=== PATIENT | female | born 2000 | race African-American/Black ===

== ENCOUNTER 2020-09-09 07:48 | Emergency (ER) | payer OTHER ==
[~2020-09-09] VITALS: Ht 167.6 cm; Wt 65.5 kg
[2020-09-09] MEDS ORDERED: PRENTAB53 PO (07:54)
--- NOTE | 2020-09-09 09:00 | REP ---
INDICATION: 7 weeks, "spitting up blood" COMPARISON: None. TECHNIQUE: Transabdominal 1st trimester obstetrical ultrasound with color Doppler evaluation. FINDINGS: Single live early intrauterine is appreciated. Gestational sac with yolk sac and pole identified. [place]-rump length of 15 mm corresponds to 7 weeks 6 days gestational age with estimated date of delivery 04/22/2021. heart rate equals 163 beats per minute. No gross abnormalities are identified. IMPRESSION: Single live early intrauterine at 7 weeks 6 days gestational age. Complete anatomical assessment should be performed and 19-20 weeks. <Electronically signed by Lars Shore > 09/09/20 0820
[2020-09-09 09:01] LABS: BASO % 0.6 % (0.0-1.0); EOS # 0.1 10^3/uL (0.0-0.5); EOS % 1.5 % (0.0-3.0); HEMATOCRIT 35.5 % (36.0-47.0); HEMOGLOBIN 10.9 g/dl (12.0-15.5); LYMPH # 2.1 10^3/uL (1.5-5.0); LYMPH % 43.1 % (24.0-44.0); MEAN CORPUSCULAR HEMOGLOBIN 19.4 pg (27.0-33.0); MEAN CORPUSCULAR HGB CONC 30.7 g/dl (32.0-36.5); MEAN CORPUSCULAR VOLUME 63.2 fl (80.0-96.0); MONO # 0.4 10^3/uL (0.0-0.8); MONO % 8.2 % (2.0-8.0); NEUTROPHILS # 2.2 10^3/uL (1.5-8.5); NEUTROPHILS % 46.4 % (36.0-66.0); PLATELET COUNT, AUTOMATED 211 10^3/uL (150-450); RED BLOOD COUNT 5.62 10^6/uL (4.00-5.40); WHITE BLOOD COUNT 4.8 10^3/uL (4.0-10.0)
[2020-09-09 09:38] LABS: BLOOD UREA NITROGEN 8 MG/DL (7-18); CALCIUM LEVEL 9.1 MG/DL (8.5-10.1); CARBON DIOXIDE LEVEL 26 MEQ/L (21-32); CHLORIDE LEVEL 106 MEQ/L (98-107); CREATININE FOR GFR 0.55 MG/DL (0.55-1.30); GLUCOSE, FASTING 81 MG/DL (70-100); HCG, SERUM QUANTITATIVE 114743 MIU/ML; POTASSIUM SERUM 3.8 MEQ/L (3.5-5.1); SODIUM LEVEL 137 MEQ/L (136-145)
[2020-09-09 11:12] VITALS: BP 113/59
--- NOTE | 2020-09-09 19:54 | ECGEPIP ---
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
== END 2020-09-09 11:15 | disposition home or self-care (01) ==
LOC: M ED 07:48
DX: O99.511 Diseases of the respiratory system complicating pregnancy, first trimester (principal); R04.2 Hemoptysis; Z3A.01 Less than 8 weeks gestation of pregnancy; Z86.16 Personal history of COVID-19; Z79.899 Other long term (current) drug therapy

== ENCOUNTER 2020-11-26 12:17 | Emergency (ER) | payer OTHER ==
[~2020-11-26] VITALS: Ht 165.1 cm; Wt 66.2 kg
[2020-11-26 12:17] VITALS: BP 129/69
[~2020-11-26 12:17] MED LIST: PRENTAB53 PO
[2020-11-26 13:35] LABS: HEMATOCRIT 31.2 % (36.0-47.0); HEMOGLOBIN 9.7 g/dl (12.0-15.5); MEAN CORPUSCULAR HEMOGLOBIN 20.4 pg (27.0-33.0); MEAN CORPUSCULAR HGB CONC 31.1 g/dl (32.0-36.5); MEAN CORPUSCULAR VOLUME 65.5 fl (80.0-96.0); PLATELET COUNT, AUTOMATED 199 10^3/uL (150-450); RED BLOOD COUNT 4.76 10^6/uL (4.00-5.40); WHITE BLOOD COUNT 5.6 10^3/uL (4.0-10.0)
[2020-11-26 13:51] LABS: BLOOD UREA NITROGEN 9 MG/DL (7-18); CALCIUM LEVEL 9.4 MG/DL (8.5-10.1); CARBON DIOXIDE LEVEL 28 MEQ/L (21-32); CHLORIDE LEVEL 105 MEQ/L (98-107); CK-MB VALUE MASS < 1.0 NG/ML (<3.6); CPK CREATINE PHOSPHOKINASE 54 U/L (26-192); CREATININE FOR GFR 0.49 MG/DL (0.55-1.30); GLUCOSE, FASTING 67 MG/DL (70-100); MB/CK RELATIVE INDEX 1.85 (< OR =4); POTASSIUM SERUM 4.3 MEQ/L (3.5-5.1); SODIUM LEVEL 139 MEQ/L (136-145); TROPONIN I < 0.02 NG/ML (< 0.10)
--- NOTE | 2020-11-27 07:51 | ECGEPIP ---
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
== END 2020-11-26 15:00 | disposition left against medical advice (07) ==
LOC: M ED 12:17
DX: Z53.21 Procedure and treatment not carried out due to patient leaving prior to being seen by health care provider (principal)

== ENCOUNTER 2020-12-03 11:42 | Emergency (ER) | payer OTHER ==
[~2020-12-03] VITALS: Ht 165.1 cm; Wt 97.7 kg
[2020-12-03] MEDS ORDERED: NS 1,000 ML IV ONE (13:35)
[2020-12-03] MEDS ORDERED: CEPH500C PO (14:00)
[2020-12-03] MEDS ORDERED: PYRI1TAB5 PO (14:00)
[2020-12-03 14:10] VITALS: BP 120/66
== END 2020-12-03 14:15 | disposition home or self-care (01) ==
LOC: M ED 11:42
DX: O23.41 Unspecified infection of urinary tract in pregnancy, first trimester (principal); Z3A.19 19 weeks gestation of pregnancy; Z79.899 Other long term (current) drug therapy

== ENCOUNTER 2020-12-18 20:52 | Outpatient (CLI) | payer OTHER ==
[~2020-12-18] VITALS: Ht 165.1 cm; Wt 71.6 kg
[~2020-12-18 20:52] MED LIST changes: +CEPH500C PO; +PYRI1TAB5 PO
[2020-12-18 21:19] VITALS: BP 130/84
[2020-12-18] MEDS ORDERED: HOME MED LIST COMPLETE! XX SCH (21:20)
--- NOTE | 2020-12-19 09:01 | HPE ---
HISTORY AND PHYSICAL DATE OF ADMISSION: 12/18/2020 This lady is a 20-year-old, 2, para 0, last menstrual period (LMP) 07/18/2020, estimated date of confinement (EDC) 04/24/2021 by early ultrasound 9 weeks, 3 days of 04/29/2021. She came up from the emergency department (ED) because she has a left earache, she has diarrhea and abdominal cramps, and decreased movement at 21 weeks of gestation. On examination, in no acute distress. Her blood pressure is 130/84, respirations 18, pulse at 94, and temperature is 98.0. On the monitor there seems to be a reactive strip. We did an ultrasound which indicated a baby in a transverse lie, back down, we could see four limb motion, jaws were moving, head was flexed side to side, cardiac activity was noted, amniotic fluid index (HAMMAD) was subjectively normal. Despite that, the patient could not feel this movement. Her lab work indicated her urine was 1.029, pH of 5, cloudy, ketones were high, leukocyte esterase was +1, was negative for bacteria. Patient had been recently treated for a urinary tract infection (UTI) in the past, however she does not know what she was taking. The rest of the examination is unremarkable. Normocephalic, atraumatic. Neck full range of motion. Pupils equal and reactive to light. Distal pulses are symmetric. No evidence of deep venous thrombosis (DVT), pulmonary embolus (PE), or superficial phlebitis. Chest is clear bilaterally to the bases. No wheezes or rhonchi. No costovertebral angle (CVA) tenderness. Abdomen is soft, four quadrant bowel sounds are noted, appropriate symphysis fundus height. She did complain of some clear discharge but this has been ongoing for a while, especially after intercourse. No vaginal bleeding was noted. Her cramps and diarrhea were not evidenced here, however she did say at home she did have that. In summary, we have a 21-weeker with normal activity, no evidence of ruptured membranes, no bleeding. She was discharged to the ED to evaluate and to treat her left ear infection. She has an appointment on 01/05/2021 with [facility] ([facility]). Her anatomy scan was normal. All questions are answered, 30 minute discussion.
== END 2020-12-18 22:02 | disposition home or self-care (01) ==
LOC: M LDO 20:52
PROVIDERS: ATTEND Obstetrics & Gynecology
DX: O26.892 Other specified pregnancy related conditions, second trimester (principal); Z3A.21 21 weeks gestation of pregnancy; R19.7 Diarrhea, unspecified; R25.2 Cramp and spasm; O36.8120 Decreased fetal movements, second trimester, not applicable or unspecified; O99.892 Other specified diseases and conditions complicating childbirth; H66.92 Otitis media, unspecified, left ear
CPT/HCPCS: 81001; 87086; G0378; G0463

== ENCOUNTER 2020-12-29 13:23 | Outpatient (CLI) | payer OTHER ==
[~2020-12-29] VITALS: Ht 165.1 cm; Wt 74.7 kg
[2020-12-29 13:42] VITALS: BP 131/76
[2020-12-29] MEDS ORDERED: FERR325T3 PO (13:50)
[2020-12-29] MEDS ORDERED: CIPR0.2S OTIC (13:50)
[2020-12-29] MEDS ORDERED: VITA500C24 PO (13:50)
[2020-12-29] MEDS ORDERED: HOME MED LIST COMPLETE! XX SCH (13:55)
--- NOTE | 2020-12-29 15:26 | IPNPDOC ---
Text Note Date of Service The patient was seen on 12/29/20. NOTE 12/29/20 20 y.0 LMP 07/18/2020 EDC 04/24/2021 BY US 9 WEEKS 3 DAYS. COMPLAINTS OF LOW BACK PAIN ABDOMINAL PAIN AND VAGINAL DISCHARGE.NO VAGINAL BLEEDING OR LOSS OF FLUID. PLAN OF CARE EARACHE RESOLVED UTI RESOLVED CRAMPS AND DIRREAH EXAMINATION NO ACUTE DISTRESS, CATEGORY 1 STRIP. SF HEIGHT APPROPRIATE STERILE VAGINAL EXAMINATION PHYSIOLOGIC DISCHARGE CERVIX POSTERIOR CLOSED THICK SWAB FOR GBS THE SLIDE EXAMINATION NEGATIVE FOR YEAST BV AND NO FERNING PRECAUTIONS GIVEN KEEP APPOINTMENT FT [facility] OB THEN AT APPOINTMENT ASK FOR MATERNITY SUPPORT. PATIENT DISCHARGED UNDELIVERED VS,Fishbone, I+O VS, Fishbone, I+O Vital Signs Date Time Temp Pulse Resp B/P (MAP) Pulse Ox O2 Delivery O2 Flow Rate FiO2 12/29/20 13:42 98.4 99 18 131/76 (94) Mateo Nunes MD Dec 29, 2020 15:26
== END 2020-12-29 14:45 | disposition home or self-care (01) ==
LOC: M LDO 13:23
PROVIDERS: ATTEND Registered Nurse Maternal Newborn
DX: O26.892 Other specified pregnancy related conditions, second trimester (principal); R10.2 Pelvic and perineal pain; Z3A.22 22 weeks gestation of pregnancy; N89.8 Other specified noninflammatory disorders of vagina
CPT/HCPCS: 59025; G0378; G0463

== ENCOUNTER → 2021-01-14 | Outpatient (CLI) | payer OTHER ==
[~2021-01-14] MED LIST changes: +CIPR0.2S OTIC; +FERR325T3 PO; +VITA500C24 PO
--- NOTE | 2021-01-14 16:21 | REP ---
INDICATION: PREG, EXTREME RT LEG SWELLING, WARM TO TOUGH COMPARISON: None. TECHNIQUE: Real time compression and duplex Doppler interrogation of the right lower extremity deep venous system is performed, including the left common femoral vein.Compression of the right peroneal and posterior tibial veins is performed. FINDINGS: The right common femoral, superficial femoral and popliteal veins are fully compressible with transducer pressure and demonstrate normal spontaneous and phasic flow, without evidence of deep venous thrombosis.The left common femoral vein demonstrates no thrombus.The visualized right peroneal and posterior tibial veins demonstrate no thrombus. IMPRESSION: No evidence of deep venous thrombosis of the right lower extremity femoral popliteal venous system.The visualized right peroneal and posterior tibial veins demonstrate no thrombus. <Electronically signed by Sam Riggs > 01/14/21 [id number]
== END ==
LOC: M RAD 15:39
PROVIDERS: ATTEND Obstetrics & Gynecology
DX: M79.89 Other specified soft tissue disorders (principal)

== ENCOUNTER 2021-01-31 16:47 | Outpatient (CLI) | payer OTHER ==
[~2021-01-31] VITALS: Ht 165.1 cm; Wt 76.8 kg
[2021-01-31] MEDS ORDERED: HOME MED LIST COMPLETE! XX SCH (17:10)
[2021-01-31 17:12] VITALS: BP 112/56
[2021-01-31 18:06] VITALS: BP 119/65
[2021-01-31 18:39] VITALS: BP 108/56
--- NOTE | 2021-01-31 20:54 | IPNPDOC ---
Text Note Date of Service The patient was seen on 01/31/21. NOTE 01/31/21 20 Y.O A1 LMP 07/18/20 EDC BY EARLY 04/24/2021 AT 28 WEEKS DECREASE MOVEMENT. RISK FACTORS ANEMIA RH NEGATIVE EXAMINATION NO ACUTE DISTRESS SF HEIGHT 28 WEEKS BOWEL SOUNDS NORMAL CATEGORY 1 STRIP. NO VAGINAL LOSS NO BLEEDING NO CONTRACTIONS ACCELERATIONS NOTED REVIEWED PRECAUTIONS REVIEWED FK PROM LABOR BLEEDING WHEN TO CALL PROVIDER, EXPRESSED UNDERSTANDING DISCHARGED UNDELIVERED VS,Fishbone, I+O VS, [place], I+O Vital Signs Date Time Temp Pulse Resp B/P (MAP) Pulse Ox O2 Delivery O2 Flow Rate FiO2 01/31/21 18:42 79 98 Room Air 01/31/21 18:39 98.8 16 108/56 (73) Mateo Nunes MD Jan 31, 2021 20:53
== END 2021-01-31 18:40 | disposition home or self-care (01) ==
LOC: M LDO 16:47
PROVIDERS: ATTEND Obstetrics & Gynecology
DX: O36.8130 Decreased fetal movements, third trimester, not applicable or unspecified (principal); Z3A.28 28 weeks gestation of pregnancy; O99.013 Anemia complicating pregnancy, third trimester
CPT/HCPCS: 59025; G0378; G0463

== ENCOUNTER → 2021-02-18 | Outpatient (CLI) | payer OTHER ==
--- NOTE | 2021-02-18 14:28 | REP ---
INDICATION: RT LEG EDEMA - 30 WEEKS- COMPARISON: 01/14/2021. TECHNIQUE: Real time compression and duplex Doppler interrogation of the right lower extremity deep venous system is performed, including the left common femoral vein.Compression of the right peroneal and posterior tibial veins is performed. FINDINGS: The right common femoral, superficial femoral and popliteal veins are fully compressible with transducer pressure and demonstrate normal spontaneous and phasic flow, without evidence of deep venous thrombosis.The left common femoral vein demonstrates no thrombus.The visualized right peroneal and posterior tibial veins demonstrate no thrombus. IMPRESSION: No evidence of deep venous thrombosis of the right lower extremity femoral popliteal venous system.The visualized right peroneal and posterior tibial veins demonstrate no thrombus. <Electronically signed by Sam Riggs > 02/18/21 [id number]
== END ==
LOC: M RAD 13:36
PROVIDERS: ATTEND Obstetrics & Gynecology
DX: O12.03 Gestational edema, third trimester (principal); Z3A.30 30 weeks gestation of pregnancy

== ENCOUNTER 2021-02-24 09:18 | Outpatient (CLI) | payer OTHER ==
[~2021-02-24] VITALS: Ht 165.1 cm; Wt 79.6 kg
[2021-02-24 09:44] VITALS: BP 110/65
--- NOTE | 2021-02-24 11:04 | IPNPDOC ---
Text Note Date of Service The patient was seen on 02/24/21. NOTE S: 21yo @ 31+0, august [id number], presents to triage with c/o decreased movement. Denies bleeding, LOF, or contractions. O: VSS RNST, fhr 130, mod variability, 10x10 accel, neg decel, no contractions noted TAUS for SIUP in cephalic presentation anterior placenta noted +FM visualized HAMMAD: 16.7cm SDP: 6.14cm A: [id number] decreased movement suspected condition not found P: PTL precautions given [facility] instructions reviewed Pt expressed understanding of instructions and reasons to return for care. VS,Fishbone, I+O VS, Fishbone, I+O Vital Signs Date Time Temp Pulse Resp B/P (MAP) Pulse Ox O2 Delivery O2 Flow Rate FiO2 02/24/21 09:44 98.2 102 16 110/65 (80) FADIA JIMÉNEZ CNM Feb 24, 2021 11:04
== END 2021-02-24 10:55 | disposition home or self-care (01) ==
LOC: M LDO 09:18
PROVIDERS: ATTEND Registered Nurse
DX: O36.8130 Decreased fetal movements, third trimester, not applicable or unspecified (principal); Z3A.31 31 weeks gestation of pregnancy
CPT/HCPCS: 59025; 76815; G0378; G0463

== ENCOUNTER 2021-03-05 09:48 | Outpatient (CLI) | payer OTHER ==
[~2021-03-05] VITALS: Ht 165.1 cm; Wt 82.5 kg
[2021-03-05 10:10] VITALS: BP 118/70
[2021-03-05] MEDS ORDERED: IRON15CH PO (10:15)
[2021-03-05] MEDS ORDERED: VITA500C24 PO (10:15)
[2021-03-05] MEDS ORDERED: HOME MED LIST COMPLETE! XX SCH (10:20)
[2021-03-05 10:53] LABS: HEMATOCRIT 31.4 % (36.0-47.0); HEMOGLOBIN 9.8 g/dl (12.0-15.5); MEAN CORPUSCULAR HEMOGLOBIN 21.2 pg (27.0-33.0); MEAN CORPUSCULAR HGB CONC 31.2 g/dl (32.0-36.5); MEAN CORPUSCULAR VOLUME 67.8 fl (80.0-96.0); PLATELET COUNT, AUTOMATED 183 10^3/uL (150-450); RED BLOOD COUNT 4.63 10^6/uL (4.00-5.40); WHITE BLOOD COUNT 6.6 10^3/uL (4.0-10.0)
[2021-03-05 11:05] LABS: INR 0.97; PROTHROMBIN TIME 13.3 SECONDS (12.7-14.5)
[2021-03-05 11:06] LABS: PARTIAL THROMBOPLASTIN TIME 27.7 SECONDS (25.9-37.0)
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
== END 2021-03-05 11:38 | disposition home or self-care (01) ==
LOC: M LDO 09:48
PROVIDERS: ATTEND Obstetrics & Gynecology
DX: O26.893 Other specified pregnancy related conditions, third trimester (principal); Y92.9 Unspecified place or not applicable; Y93.9 Activity, unspecified; Y99.9 Unspecified external cause status; Z3A.32 32 weeks gestation of pregnancy
CPT/HCPCS: 36415; 59025; 76815; 85027; 85384; 85460; 85610; 85730; G0378; G0463

== ENCOUNTER → 2021-04-12 | Outpatient (CLI) | payer OTHER ==
[~2021-04-12] MED LIST changes: +ACET-683 PO; +IBUP80TA PO; +IRON15CH PO; +OXYC-517 PO
== END ==
LOC: M RAD 14:42
PROVIDERS: ATTEND Obstetrics & Gynecology
DX: Z34.83 Encounter for supervision of other normal pregnancy, third trimester (principal); Z3A.38 38 weeks gestation of pregnancy

== ENCOUNTER 2021-04-17 23:25 | Inpatient (IN) | payer OTHER ==
[~2021-04-17] VITALS: Ht 165.1 cm; Wt 90.5 kg
[~2021-04-17 23:25] MED LIST changes: -ACET-683 PO; -IBUP80TA PO; -OXYC-517 PO
[2021-04-17 23:44] VITALS: BP 141/91
[2021-04-18] VITALS (21 sets, daily range): BP systolic 121–169; BP diastolic 67–93
[2021-04-18] MEDS ORDERED: LR 1,000 ML IV SCH ×2 (00:50→18:35)
[2021-04-18] MEDS ORDERED: OXYTOCIN DRIP 30 UNITS in IV 1 EA IV PRN ×4 (00:50)
--- NOTE | 2021-04-18 01:08 | HPEPDOC ---
Obstetrical History & Physical General Date of Admission History of Present Illness Ernestina Jones is a 21yo at 39+1 presenting for rupture of membranes at about 2200 [id number], clear fluid. Denies vaginal bleeding. Feels irregular contractions. Endorses positive movement. Denies any other complaints. 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 Past Medical History Medical History Denies Surgical History: Denies/None Family History Significant Family History: No pertinent family hx Social History Marital Status: Family situation: Spouse/partner home Psychosocial History: No pertinent psych hx * Smoker: non-smoker Alcohol: Denies Drugs: denies Abuse Violence Screening Have you been hit/kicked/slapp: No Have you been sexually assault: No Imunizations Tdap status: declined Influenza Status: needs Allergies Coded Allergies: No Known Allergies (Unverified , 04/17/21) Medications Scheduled Vit,Calc76/Iron/Folic (Prenatabs Rx Tablet) 1 Each Tablet, 1 TAB PO DAILY Physical Examination Physical Examination GENERAL: Alert and oriented times three. BREAST: . ABDOMEN: Gravid and non-tender to touch. EFW 3400g by palpation. FETUS: Is vertex (VTX) by ultrasound HEART RATE: Regular rate LUNGS: nonlabored breathing EXTREMITIES: No edema. Pertinent Laboratoy Data Blood Type: B- RBC Antibody Screen: Negative HIV: Negative Hepatitis B: Negative Rapid Plasma Reagin: Nonreactive Rubella: Immune Varicella: Immune Chlamydia/Gonorrhea: Negative Group B Streptococcus: Negative Quad Screen Test: Negative Cystic Fibrosis: Negative Glucose Tolerance Test: 84 Anatomy Ultrasound Ultrasound Date: Dec 09, 2020 Placenta Location: Anterior Normal Anatomy: Yes Placenta Previa: No Steroid Therapy Steroid Therapy: No Vaginal Examination Dilation: None Effacement: 30% Station: -3 Cervical Consistency: Firm Cervical Position: Posterior Presentation: Cephalic presentation Assessment Heart Rate (FHR): 130 Variability: Moderate Accelerations: Positive Decelerations: None Tocometer Contractions: Yes Frequency: every 3-7 min. Multi-drug resistant Organism: No history of MDRO Assessment/Plan Assessment Ernestina Jones is a term admitted for PROM. GBS negative, cephalic presentation, efw 3400g. Rh negative. Category I tracing. Plan Admit and orient. Manager Council and consent. Diet: regular. Group B Streptococcus (GBS) [negative]. Labs and intravenous (IV) per unit protocol. Counseled on Pitocin and induction of labor (IOL). Lactated Ringers (LR): at 125 mL/hr. Anticipate normal spontaneous delivery C-S as appropriate. We discussed immediate labor induction vs. 12 hours of observation for natural labor to occur after ROM; discussed risk of infection; at this time she desires expectant management. Labor and Delivery Counseling L&D consent We will deliver your baby through the vagina with possible assistance of forceps or vacuum device if needed for maternal or indications. Forceps and vacuum are devices that can assist with vaginal delivery when normal pushing efforts cannot achieve delivery on their own or when delivery is needed in an emergency for baby's well-being. Medications may be required to induce or augment (help) your labor in order to achieve a vaginal delivery. An episiotomy may be required to help your baby to delivery vaginally. You may also require repair of any lacerations or tears of your vagina or vulva that are caused by delivery. In some cases, emergencies can occur that require an emergency section delivery so quickly that there may not be enough time to stop and complete consent forms for section. Understand that if this occurs, your providers will discuss the need for a section with you before they proceed with surgery. section is the delivery of your baby through an incision in your abdomen. In some situations, section may be safer to mom and baby than continuing labor and is only performed when clinically indicated. Risks of vaginal delivery include but are not limited to: Bleeding, infection, injury to the vagina, pelvic structures, injury to baby, damage to the uterus, reactions to anesthesia, uterine rupture, risk of hysterectomy for life threatening bleeding, or . Medications used to induce or augment labor may increase your risk for infection, uterine tachysystole, uterine rupture, heart rate abnormalities, need for emergency delivery or possible hysterectomy, and hemorrhage. Additional risks for use of forceps and vacuum include: increased risk of perineal and vaginal lacerations, risk of urinary or bowel incontinence, increased risk of injury to baby with bruising, scratches, hematomas on the head, or intracranial bleeding. Discussed risk of shoulder dystocia, procedures to relieve dystocia including intentional bone fractures of fetus as last resort. RICCI GALLO DO Apr 18, 2021 01:08
[2021-04-18] MEDS ORDERED: HOME MED LIST COMPLETE! XX SCH (01:10)
[2021-04-18 01:20] LABS: HEMATOCRIT 34.2 % (36.0-47.0); HEMOGLOBIN 10.7 g/dl (12.0-15.5); MEAN CORPUSCULAR HGB CONC 31.3 g/dl (32.0-36.5); MEAN CORPUSCULAR VOLUME 67.1 fl (80.0-96.0); PLATELET COUNT, AUTOMATED 192 10^3/uL (150-450); WHITE BLOOD COUNT 6.4 10^3/uL (4.0-10.0)
[2021-04-18 01:42] LABS: ALT/SGPT 15 U/L (12-78); BILIRUBIN,TOTAL 0.2 MG/DL (0.2-1.0); CREATININE FOR GFR 0.48 MG/DL (0.55-1.30); GLOMERULAR FILTRATION RATE > 60.0 (>60); LDH LACTATE DEHYDROGENASE 135 U/L (84-246); URIC ACID 3.5 MG/DL (2.6-6.0)
[2021-04-18 09:06] LABS: APPEARANCE, URINE HAZY (CLEAR); BACTERIA, URINE AUTO 1+ (NEGATIVE); BILIRUBIN, URINE AUTO NEGATIVE (NEGATIVE); BLOOD, URINE BLOOD 2+ (NEGATIVE); COLOR, URINE YELLOW (YELLOW); GLUCOSE, URINE (UA) AUTO NEGATIVE (NEGATIVE); KETONE, URINE AUTO NEGATIVE (NEGATIVE); LEUKOCYTE ESTERASE, URINE AUTO TRACE (NEGATIVE); MUCUS, URINE SMALL (NEGATIVE); NITRITE, URINE AUTO NEGATIVE (NEGATIVE); PROTEIN, URINE AUTO 1+ mg/dL (NEGATIVE); RBC, URINE AUTO 144 /HPF (0-3); SPECIFIC GRAVITY URINE AUTO 1.023 (1.002-1.035); SQUAMOUS EPITHELIAL CELL UR AU 9 /HPF (0-6); WBC, URINE AUTO 10 /HPF (0-3)
--- NOTE | 2021-04-18 09:23 | IPNPDOC ---
Obstetrical Progress Note Date of Service Apr 18, 2021 Subjective Ernestina Jones is feeling her contrations every few minutes. Declines pain management at this time. She has had mild range pressures with nonsustained severe ranges (160s systolic). She denies headaches, vision changes, shortness of breath or right upper quadrant pain. Objective Vital Signs Date Time Temp Pulse Resp B/P (MAP) Pulse Ox O2 Delivery O2 Flow Rate FiO2 04/18/21 06:29 98.6 85 18 134/74 (94) Room Air 04/17/21 23:44 99 Assessment Heart Rate (FHR): 135 Variability: Moderate Accelerations: Positive Decelerations: None Heart Rate Tracing: Category I Tocometer Contractions: Yes Frequency: every 3-7 min. Sterile Vaginal Examination Dilation: 1cm Effacement (%): 30% Station: -3 Cervical Consistency: Soft Cervical Position: Posterior Postion/Presentation: Cephalic presentation Assessment and Plan Age: 21 : 2 Term: 0 Pre-term: 0 Abortions: 1 Livin Weeks & Days 39+1 Status: Reassuring Group B Streptococcus: Negative Anticipate: Vaginal Delivery Additional Comments She now has a diagnosis of gestational hypertension, tox labs have been normal. Urine protein pending. At this time she had a little change to 1cm, I recommended induction of labor with pitocin or cytotec. Ath this time her contractions are at most 2 per 10 minutes, safe for cytotec. She agrees with the plan, all questions answered. Discussed need for IV antihypertensives and magnesium therapy if she has sustained severe range pressures. -initiate cytotec 25mcg PO -reevaluate labor in 4 hours -routine intrapartum care RICCI GALLO DO Apr 18, 2021 09:15
[2021-04-18 09:27] LABS: TOTAL PROTEIN,RANDOM URINE 61.8 MG/DL (0.0-12.0)
[2021-04-18] MEDS ORDERED: miSOPROStol 25MCG 1/4 TABLET PO ONE (10:00)
--- NOTE | 2021-04-18 10:32 | IPNPDOC ---
Text Note Date of Service The patient was seen on 04/18/21. NOTE Ernestina requested to talk to me so I entered the room. She expressed concern about her blood pressure which have been mild range with nonsustained severe range pressures; last blood pressure 133/90. She was asking about when she would need a . I stated that usually delivery is reserved for maternal or issues; currently the fetus is tolerating labor well. Her blood pressures at this time do not warrant delivery; perhaps if she developed severe range pressures that were not responsive to medications, or other severe features of preeclampsia then a quicker delivery may be considered. I explained that while mild range pressures may be disconcerting for her to see, it is expected with a diagnosis of gestational hypertension and that the culprit is the placenta. After delivery of the baby the placenta will come out and she should see improvement in her blood pressures after that. She also thought that her induction was taking a long time. I expalined that we had only just started her induction with cytotec about an hour ago; early cervical ripening can take 12 or more hours on occasion. All in all I attempted to reassure her that at this time she has a normal labor course. She indicated understanding and all questions were answered. Pankaj Amaro DO VS,Elizabeth, I+O VS, Elizabeth, I+O Laboratory Tests 04/18/21 01:07 Vital Signs Date Time Temp Pulse Resp B/P (MAP) Pulse Ox O2 Delivery O2 Flow Rate FiO2 04/18/21 06:29 98.6 85 18 134/74 (94) Room Air 04/17/21 23:44 99 PANKAJ AMARO DO Apr 18, 2021 10:32
--- NOTE | 2021-04-18 13:23 | IPNPDOC ---
Text Note Date of Service The patient was seen on 04/18/21. NOTE I was called to the room by nursing as I was told that Ernestina had some quest ions. When I entered the room her blood pressure was 130s/90s. The tracing was category I. Ernestina called her mother who desired clarification on her daughter's treatment plan. I explained that her diagnosis at this time is gestational hypertension based on mild range blood pressures. The treatment for gestational hypertension is delivery; however delivery can be vaginal and an induction of labor is reasonable. Indications for delivery would be heart rate tracing abnormalities or maternal indications would be uncontrolled hypertension or other symptoms of severe preeclampsia. Her mother was concerned that Ernestina's condition may deteriorate. I stated that at this time Ernestina is in good condition and the baby is tolerating labor well; vaginal delivery is a reasonable option and while I do not have a crystal ball I completely expect to have a safe vaginal delivery. I stated that a can always be performed for maternal request and if that is the case with Ernestina I would be happy to do so however the indication would be maternal request. I let them both know that at this time she is having a normal labor course and I do not have a medical reason to recommend delivery. This conversation was about 30 minutes in length and I answered numerous questions regarding her care. I reviewed the r/b/a to delivery, risks including but not limited to infection, bleeding, damage to nearby organs, damage to baby, hysterectomy, . I then left the room and she discussed her options with her family. SHe then informed me of her desire for primary delivery on maternal request. Pankaj Amaro DO VS,Elizabeth, I+O VS, Elizabeth, I+O Laboratory Tests 04/18/21 01:07 Vital Signs Date Time Temp Pulse Resp B/P (MAP) Pulse Ox O2 Delivery O2 Flow Rate FiO2 04/18/21 11:43 97.8 04/18/21 11:05 86 16 157/86 (109) 04/18/21 10:04 Room Air 04/17/21 23:44 99 PANKAJ AMARO DO Apr 18, 2021 13:23
[2021-04-18] MEDS ORDERED: OXYTOCIN 30 UNITS IN 0.9% NaCl 500ML IV BAG (J2590) As Ordered ONE ×2 (16:36→18:39)
[2021-04-18] MEDS ORDERED: MORPHINE PRES-FREE INJ 10 MG/10 ML VIAL (J2274) As Ordered ONE (16:36)
[2021-04-18] MEDS ORDERED: AZITHROMYCIN INJ 500 MG, VIAL MATE ADAPTER 1 EACH in NS 250 ML IV ONE (17:00)
[2021-04-18] MEDS ORDERED: ceFAZolin SOD 2 GM in IV 1 EA IV ONE (17:00)
[2021-04-18] MEDS ORDERED: BICITRA 30ML SOLN UDC PO ONE (17:00)
[2021-04-18] MEDS ORDERED: LIDOCAINE PRES-FREE 2% 10ML AMP As Ordered ONE (17:03)
[2021-04-18] MEDS ORDERED: diphenhydrAMINE 50MG/ML VIAL (J1200) IV PRN (17:05)
[2021-04-18] MEDS ORDERED: NALBUPHINE HCL 10 MG/ML AMP (J2300) IV PRN (17:05)
[2021-04-18] MEDS ORDERED: NALOXONE INJ 0.4MG/1ML VIAL (J2310 PER 1MG) IV PRN ×2 (17:05)
[2021-04-18] MEDS ORDERED: METOCLOPRAMIDE INJ 10MG/2ML VIAL (J2765 PER 1) IV PRN (17:05)
[2021-04-18] MEDS ORDERED: ONDANSETRON 4MG/2ML VIAL IV PRN ×3 (17:05→18:45)
[2021-04-18] MEDS ORDERED: PHENYLephrine 500MCG 5ML (100MCG/ML) SYRINGE As Ordered ONE (17:08)
[2021-04-18] MEDS ORDERED: ePHEDrine SULFATE 25 MG/5 ML(5MG/ML) SYRINGE As Ordered ONE (17:08)
[2021-04-18 17:45] LABS: CORD GAS HCO3 A 22.2 MEQ/L; CORD GAS O2 SAT A 62.2 %; CORD GAS PCO2 A 54.1 mmHg; CORD GAS PH A 7.231 UNITS; CORD GAS PO2 A 29.4 mmHg; CORD GAS SBC A 18.8 MEQ/L; CORD GAS TCO2 A 23.9 MEQ/L
[2021-04-18 17:48] LABS: CORD GAS ABE V -4.2; CORD GAS O2 SAT V 64.2 %; CORD GAS PCO2 V 43.9 mmHg; CORD GAS PH V 7.317 UNITS; CORD GAS SBC V 20.2 MEQ/L; CORD GAS TCO2 V 23.3 MEQ/L
[2021-04-18] MEDS ORDERED: RHOGAM 300 MCG (1500 IU) INJ (J2790) IM SCH (18:35)
[2021-04-18] MEDS ORDERED: PROMETHAZINE 25 MG TAB PO PRN (18:35)
[2021-04-18] MEDS ORDERED: oxyCODONE 5MG TAB PO PRN ×3 (18:35→18:45)
[2021-04-18] MEDS ORDERED: MEASLES,MUMPS,RUBELLA VACCINE INJ (MMR-II) (90707) SC SCH (18:35)
[2021-04-18] MEDS ORDERED: SIMETHICONE 80MG CHEW TAB PO PRN (18:35)
[2021-04-18] MEDS ORDERED: MORPHINE 2 MG/ML 1ML VIAL (J2270) IV PRN (18:35)
[2021-04-18] MEDS ORDERED: KETOROLAC 30 MG/ML 1ML VIAL IV PRN (18:45)
[2021-04-18] MEDS ORDERED: fentaNYL 100 MCG/2 ML INJECTION (J3010) IV PRN (18:45)
--- NOTE | 2021-04-18 19:02 | ROOPDOC ---
[facility] Report Of Operation Report of Operation DATE OF PROCEDURE: 04/18/21 PREPROCEDURE DIAGNOSES: -maternal request for delivery -prelabor rupture of membranes -gestational hypertension POSTPROCEDURE DIAGNOSES: - status post primary low transverse delivery - gestational hypertension PROCEDURE PERFORMED: primary low transverse delivery SURGEON: Ricci Amaro DO ANESTHESIA: regional ESTIMATED BLOOD LOSS: Approximately 800 mL. COMPLICATIONS: none REMARKS: none FINDINGS: -live female delivered [id number] at 1729, weight 2990g, 6# 9oz; 9/9 -normal appearing uterus, tubes and ovaries SPECIMENS REMOVED: none PROCEDURE NOTE: see below DESCRIPTION OF PROCEDURE: After obtaining informed consent, Ernestina Jones was taken to the operating suite and prepped/draped in the usual manner. A timeout was called and the patient name, date of and procedure to be performed were verified. Anesthesia was tested with an Allis clamp and found to be adequate. A transverse incision was made 2 fingerbreadths superior to the pubic symphysis. This was carried down to the fascia which was scored with the scalpel. The fascial incision was extended laterally with the Garcia scissors. The superior and inferior fascia was dissected from the rectus muscles both sharply and bluntly. The peritoneum was identified, entered bluntly and extended bilaterally. A bladder blade was placed and a bladder flap created with the Metzenbaum s cissors. The lower uterine segment was incised transversely with the scalpel and the uterus was entered bluntly with clear fluid noted. The head was elevated to the level of the incision and fundal pressure was applied. The head delivered without issue followed by the shoulders and the corpus. Good cry was noted. The was suctioned/dried/stimulated. The cord was clamped and cut. The was taken to the warmer for evaluation. Cord blood and venous/arterial gases were obtained. The placenta delivered spontaneously and intact. The uterus was exteriorized and the interior wiped with a laparotomy sponge. The hysterotomy was closed with 0-vicryl in a running locking fashion. A second imbricating layer of 0-vicryl was placed. A [id number] suture of 0-vicryl was placed for hemostasis. The incision was inspected and found to be hemostatic. The posterior cul-de-sac was irrigated. The hysterotomy was again inspected and found to be hemostatic. The uterus was returned to the abdomen. A goombc-fy-savjw suture was placed for hemostasis on the incision. There was small oozing along the incision line. Arrista was placed along the incision and hemostasis noted. The fascia was closed with running 0-vicryl. The subcutaneous layer was irrigated then closed with 3-0 vicryl interrupted sutures. The skin was closed with running 4-0 monocryl. An Optifoam dressing was placed. All counts were correct. Ernestina was in good condition and anesthesia took her to the recovery room and I left the room. Ricci Amaro, RICCI ERNST DO Apr 18, 2021 18:48
[2021-04-18] MEDS: DOCUSATE SODIUM 100MG CAPSULE PO SCH (21:06)
[2021-04-18] MEDS: ACETAMINOPHEN 500 MG TAB PO SCH (21:06)
[2021-04-18] MEDS: KETOROLAC 30 MG/ML 1ML VIAL IV SCH (23:35)
[2021-04-19] MEDS: ACETAMINOPHEN 500 MG TAB PO SCH ×4 (01:18→20:20)
[2021-04-19 02:00] VITALS: BP 123/62
--- NOTE | 2021-04-19 05:51 | IPNPDOC ---
Progress Note Date of Service: Apr 19, 2021 Day#: 1 Progress Note SUBJECT: Ernestina Jones is a 21-year-old 1 now Para 1001 status post uncomplicated primary low transverse indicated by maternal request at 39+1 weeks' at approximately 1729 hours on 19APR2021 of a female 6 pounds 9 ounces (2990 grams) doing well day #1. She has been ambulating, a higginbotham in place and tolerating regular diet. Breast feeding without issue. Reports lochia is small. Denies headaches, vision changes, shortness of breath, right upper quadrant pain. Intrapartum diagnosis of gestational hypertension, tox labs within normal limits. OBJECTIVE: VITAL SIGNS: Within normal limits, afebrile. Alert and oriented times three. Nonlabored breathing, lungs ctab Heart rate: Regular rate and rhythm Abdomen: Fundus firm at U-2. Soft, NTTP. Incision covered with Optifoam with minimal strikethrough. +bowel sounds Negative calf tenderness bilaterally. ASSESSMENT: As above doing well on day 1. Vitals within normal limits, afebrile, hemodynamically stable with no evidence of infection. PLAN: - Discharge to home likely tomorrow. - Tylenol and Motrin and oxycodone for pain. - Encourage breast feeding and ambulation, incentive spirometry. - Return in one week for blood pressure check, two week s for incision check, and routine PP visit in 6 weeks in clinic. VS, I&O, 24H, Fishbone Vital Signs/I&O Vital Signs Date Time Temp Pulse Resp B/P (MAP) Pulse Ox O2 Delivery O2 Flow Rate FiO2 04/19/21 02:00 97.7 68 16 123/62 (82) 98 Room Air I&O- Last 24 Hours up to 6 AM 04/19/21 06:00 Intake Total 3567 ml Output Total 1650 ml Balance 1917 ml Laboratory Data 24H LABS Laboratory Tests 2 04/18/21 08:47: Urine Color YELLOW, Urine Appearance HAZY, Urine pH 6.0, Urine Specific [place] 1.023, Urine Protein 1+H, Urine Glucose (Auto)(UA) NEGATIVE, Urine Ketones (Auto) NEGATIVE, Urine Blood 2+H, Urine Nitrite NEGATIVE, Urine Bilirubin NEGATIVE, Urine Urobilinogen 2.0H, Urine Leukocyte Esterase (Auto) TRACEH, Urine WBC (Auto) 10H, Urine RBC (Auto) 144H, Urine Hyaline Casts (Auto) 0, Urine Bacteria (Auto) 1+H, Urine Squamous Epithelial Cells 9, Urine Mucus (Auto) SMALL, Urine Sperm (Auto) , Urine Random Creatinine 153.0, Urine Random Total Protein 61.8H 04/18/21 17:35: Cord Arterial Blood pH 7.231, Cord Arterial Blood PCO2 54.1, Cord Arterial Blood PO2 29.4, Cord Arterial Blood HCO3 22.2, Cord Arterial Blood Total CO2 23.9, Cord Arterial Blood Base Excess -6.0, Cord Arterial Base Excess (Standard 18.8, Cord Arterial Bld Oxygen Saturation 62.2, Cord Venous Blood pH 7.317, Cord Venous Blood PCO2 43.9, Cord Venous Blood PO2 28.0, Cord Venous Blood HCO3 22.0, Cord Venous Blood Total CO2 23.3, Cord Venous Base Excess (Actual) -4.2, Cord Venous Base Excess (Standard) 20.2, Cord Venous Blood Oxygen Saturation 64.2 RICCI GALLO DO Apr 19, 2021 04:13
[2021-04-19 06:03] VITALS: BP 113/68
[2021-04-19] MEDS: KETOROLAC 30 MG/ML 1ML VIAL IV SCH ×2 (06:07→11:46)
[2021-04-19 06:57] LABS: HEMATOCRIT 29.9 % (36.0-47.0); HEMOGLOBIN 9.6 g/dl (12.0-15.5); MEAN CORPUSCULAR HEMOGLOBIN 21.5 pg (27.0-33.0); MEAN CORPUSCULAR HGB CONC 32.1 g/dl (32.0-36.5); MEAN CORPUSCULAR VOLUME 66.9 fl (80.0-96.0); PLATELET COUNT, AUTOMATED 182 10^3/uL (150-450); RED BLOOD COUNT 4.47 10^6/uL (4.00-5.40); WHITE BLOOD COUNT 13.5 10^3/uL (4.0-10.0)
[2021-04-19] MEDS: DOCUSATE SODIUM 100MG CAPSULE PO SCH ×2 (08:30→20:19)
[2021-04-19] MEDS: PRENATAL VITAMINS CHEWABLE TABLET PO SCH (08:30)
[2021-04-19 10:01] VITALS: BP 133/71
[2021-04-19 14:14] VITALS: BP 137/79
[2021-04-19 17:54] VITALS: BP 139/78
[2021-04-19] MEDS: IBUPROFEN 800 MG TAB PO SCH ×2 (20:00→20:20)
[2021-04-19 22:00] VITALS: BP 132/77
[2021-04-20] MEDS: ACETAMINOPHEN 500 MG TAB PO SCH ×2 (01:56→08:00)
[2021-04-20 02:00] VITALS: BP 143/84
[2021-04-20] MEDS: IBUPROFEN 800 MG TAB PO SCH (04:00)
[2021-04-20 06:30] VITALS: BP 136/88
[2021-04-20] MEDS ORDERED: IBUP80TA PO (06:55)
[2021-04-20] MEDS ORDERED: ACET-683 PO (06:55)
[2021-04-20] MEDS ORDERED: OXYC-517 PO (06:55)
--- NOTE | 2021-04-20 07:52 | DS.PDOC ---
Discharge Summary General Date of Admission Apr 18, 2021 at 02:38 Date of Discharge Apr 20, 2021 Discharge Summary HOSPITAL COURSE: Ms. Jones is a 21 yo G2 now P1 who underwent an uncomplicated PLTCS on 18Apr2021 for maternal request. Her course was unremarkable. On her day of discharge she met all appropriate discharge criteria. She was ambulating, voiding, tolerating a regular diet, and had min imal lochia. DISCHARGE MEDICATIONS: Please see below. ALLERGIES: Please see below. PHYSICAL EXAMINATION ON DISCHARGE: VITAL SIGNS: Please see below. GENERAL: AAOX3, NAD ABDOMINAL EXAMINATION: Fundus firm at U-2. No fundal tenderness. Optifoam dressing in place over incision. Minimal strikethrough. No tenderness to palpation. EXTREMITIES: No edema PSYCHIATRIC EXAMINATION: Affect appropriate LABORATORY DATA: Please see below. ACTIVITY: Pelvic rest for 6 weeks DIET: Regular DISCHARGE PLAN: Discharge home DISPOSITION: Discharge home on 20Apr2021 DISCHARGE INSTRUCTIONS: 1. Nothing in the vagina for 6 weeks ITEMS TO FOLLOWUP ON ON OUTPATIENT: 1. Call to schedule a visit for 6 weeks post delivery DISCHARGE CONDITION: Stable. TIME SPENT ON DISCHARGE: Greater than 20 minutes. Ryan Herrera DO Vital Signs/I&Os Vital Signs Date Time Temp Pulse Resp B/P (MAP) Pulse Ox O2 Delivery O2 Flow Rate FiO2 04/20/21 06:30 97.9 78 18 136/88 (104) 98 Room Air I&O- Last 24 Hours up to 6 AM 04/20/21 06:00 Intake Total 845 ml Output Total 300 ml Balance 545 ml Discharge Medications Scheduled Acetaminophen (Acetaminophen) 500 Mg Tablet, 1,000 MG PO Q6H Ibuprofen (Ibuprofen) 800 Mg Tablet, 800 MG PO Q8H Vit,Calc76/Iron/Folic (Prenatabs Rx Tablet) 1 Each Tablet, 1 TAB PO DAILY, (Reported) Scheduled PRN Oxycodone HCl (Oxycodone HCl) 5 Mg Tablet, 5 MG PO Q6H PRN for MODERATE PAIN (PS 5-7) Allergies Coded Allergies: No Known Allergies (Unverified , 04/17/21) RYAN HERRERA DO Apr 20, 2021 07:52
[2021-04-20] MEDS: DOCUSATE SODIUM 100MG CAPSULE PO SCH (08:00)
[2021-04-20] MEDS: PRENATAL VITAMINS CHEWABLE TABLET PO SCH (08:00)
== END 2021-04-20 12:32 | disposition home or self-care (01) | DRG 773 ==
LOC: M LDO 23:25 → M LDI 04-18 02:38 → M OBS 04-18 19:50
PROVIDERS: ADMIT Obstetrics & Gynecology; ATTEND Obstetrics & Gynecology
PROC: 10D00Z1 Extraction of Products of Conception, Low, Open Approach (ICD-10-PCS; principal; 2021-04-18 17:00)
DX: O42.12 Full-term premature rupture of membranes, onset of labor more than 24 hours following rupture (principal); Z37.0 Single live birth; Z3A.39 39 weeks gestation of pregnancy; O13.4 Gestational [pregnancy-induced] hypertension without significant proteinuria, complicating childbirth

== ENCOUNTER → 2022-06-03 | Outpatient (CLI) | payer OTHER ==
[~2022-06-03] MED LIST changes: +ACET-683 PO; +IBUP80TA PO; +OXYC-517 PO
== END ==
LOC: M RAD 14:29
PROVIDERS: ATTEND Obstetrics & Gynecology
DX: Z34.82 Encounter for supervision of other normal pregnancy, second trimester (principal)

== ENCOUNTER 2022-07-11 01:45 | Emergency (ER) | payer OTHER ==
[~2022-07-11] VITALS: Ht 165.1 cm; Wt 82.3 kg
[2022-07-11 01:46] VITALS: BP 135/62
[2022-07-11 03:15] LABS: RSV AMPLIFICATION NEGATIVE (NEGATIVE)
== END 2022-07-11 06:38 | disposition left against medical advice (07) ==
LOC: M ED 01:45
DX: Z53.21 Procedure and treatment not carried out due to patient leaving prior to being seen by health care provider (principal)

== ENCOUNTER 2022-08-04 10:21 | Outpatient (CLI) | payer OTHER ==
[~2022-08-04] VITALS: Ht 165.1 cm; Wt 85.0 kg
[~2022-08-04 10:21] MED LIST changes: +ALBUTEROL SULFATE 2.5MG/0.5ML INH NEB SOLN INH PRN; +EPINEPHrine INJ 1 MG/ML 1ML AMP IM PRN; +diphenhydrAMINE 50MG/ML VIAL IV PRN; +methylPREDNISolone 125MG 2ML VIAL IV PRN
[2022-08-04] MEDS ORDERED: NS 1,000 ML IV SCH (10:30)
[2022-08-04] MEDS ORDERED: IRON SUCROSE 275 MG in NS 250 ML IV ONE (10:30)
[2022-08-04] MEDS ORDERED: IRON SUCROSE 25 MG in NS 23.75 ML IV ONE (10:30)
[2022-08-04 12:32] VITALS: BP 132/63
[2022-08-04 13:50] VITALS: BP 135/58
== END 2022-08-04 13:50 ==
LOC: M INFU 10:21
PROVIDERS: ATTEND Obstetrics & Gynecology
DX: D50.9 Iron deficiency anemia, unspecified (principal)
CPT/HCPCS: 96365; 96366; J1756

== ENCOUNTER 2022-08-06 08:43 | Outpatient (CLI) | payer OTHER ==
[~2022-08-06] VITALS: Ht 165.1 cm; Wt 86.7 kg
[~2022-08-06 08:43] MED LIST changes: -ALBUTEROL SULFATE 2.5MG/0.5ML INH NEB SOLN INH PRN; -EPINEPHrine INJ 1 MG/ML 1ML AMP IM PRN; -diphenhydrAMINE 50MG/ML VIAL IV PRN; -methylPREDNISolone 125MG 2ML VIAL IV PRN
[2022-08-06 09:01] VITALS: BP 131/63
[2022-08-06 10:21] LABS: APPEARANCE, URINE CLOUDY (CLEAR); BACTERIA, URINE AUTO 1+ (NEGATIVE); BILIRUBIN, URINE AUTO NEGATIVE (NEGATIVE); BLOOD, URINE BLOOD NEGATIVE (NEGATIVE); COLOR, URINE YELLOW (YELLOW); GLUCOSE, URINE (UA) AUTO NEGATIVE (NEGATIVE); KETONE, URINE AUTO NEGATIVE (NEGATIVE); LEUKOCYTE ESTERASE, URINE AUTO NEGATIVE (NEGATIVE); MUCUS, URINE SMALL (NEGATIVE); NITRITE, URINE AUTO NEGATIVE (NEGATIVE); PROTEIN, URINE AUTO 1+ mg/dL (NEGATIVE); RBC, URINE AUTO 1 /HPF (0-3); SPECIFIC GRAVITY URINE AUTO 1.024 (1.002-1.035); SQUAMOUS EPITHELIAL CELL UR AU 39 /HPF (0-6); UROBILINOGEN, URINE AUTO 0.2 mg/dL (0.0-2.0); WBC, URINE AUTO 1 /HPF (0-3)
[2022-08-06 12:08] LABS: GC DNA AMPLIFICATION NEGATIVE (NEGATIVE)
== END 2022-08-06 10:43 | disposition home or self-care (01) ==
LOC: M LDO 08:43
PROVIDERS: ATTEND Obstetrics & Gynecology
DX: O36.8130 Decreased fetal movements, third trimester, not applicable or unspecified (principal); O26.893 Other specified pregnancy related conditions, third trimester; R25.2 Cramp and spasm; Z3A.29 29 weeks gestation of pregnancy; O34.219 Maternal care for unspecified type scar from previous cesarean delivery; O99.613 Diseases of the digestive system complicating pregnancy, third trimester; K59.00 Constipation, unspecified
CPT/HCPCS: 59025; 76815; 81001; 87210; 87661; 87810; 87850; G0463

== ENCOUNTER 2022-08-11 09:19 | Outpatient (CLI) | payer OTHER ==
[~2022-08-11] VITALS: Ht 165.1 cm; Wt 85.0 kg
[~2022-08-11 09:19] MED LIST changes: +ALBUTEROL SULFATE 2.5MG/0.5ML INH NEB SOLN INH PRN; +EPINEPHrine INJ 1 MG/ML 1ML AMP IM PRN; +diphenhydrAMINE 50MG/ML VIAL IV PRN; +methylPREDNISolone 125MG 2ML VIAL IV PRN
[2022-08-11 09:26] VITALS: BP 112/63
[2022-08-11] MEDS ORDERED: NS IV ONE (09:30)
[2022-08-11] MEDS ORDERED: IRON SUCROSE IV ONE (09:30)
[2022-08-11] MEDS ORDERED: IRON SUCROSE 300 MG in NS 250 ML OVER 90 MIN. IV ONE (09:30)
[2022-08-11] MEDS ORDERED: NS 1,000 ML IV SCH (09:30)
[2022-08-11 11:30] VITALS: BP 117/66
== END 2022-08-11 11:36 | disposition home or self-care (01) ==
LOC: M INFU 09:19
PROVIDERS: ATTEND Obstetrics & Gynecology
DX: D50.9 Iron deficiency anemia, unspecified (principal)
CPT/HCPCS: 96365; 96366; J1756

== ENCOUNTER 2022-08-18 09:45 | Outpatient (CLI) | payer OTHER ==
[~2022-08-18] VITALS: Ht 165.1 cm; Wt 85.0 kg
[2022-08-18 09:35] VITALS: BP 119/56
[~2022-08-18 09:45] MED LIST changes: +IRON SUCROSE 25 MG in NS 23.75 ML IV ONE; +IRON SUCROSE 250 MG in NS 250 ML IV ONE; +NS 1,000 ML IV SCH
[2022-08-18 12:30] VITALS: BP 118/58
== END 2022-08-18 12:30 | disposition home or self-care (01) ==
LOC: M INFU 09:45
PROVIDERS: ATTEND Obstetrics & Gynecology
DX: D50.9 Iron deficiency anemia, unspecified (principal)
CPT/HCPCS: 96365; 96366; J1756

== ENCOUNTER 2022-09-17 13:45 | Outpatient (CLI) | payer OTHER ==
[~2022-09-17] VITALS: Ht 165.1 cm; Wt 93.4 kg
[~2022-09-17 13:45] MED LIST changes: -ALBUTEROL SULFATE 2.5MG/0.5ML INH NEB SOLN INH PRN; -EPINEPHrine INJ 1 MG/ML 1ML AMP IM PRN; -IRON SUCROSE 25 MG in NS 23.75 ML IV ONE; -IRON SUCROSE 250 MG in NS 250 ML IV ONE; -NS 1,000 ML IV SCH; -diphenhydrAMINE 50MG/ML VIAL IV PRN; -methylPREDNISolone 125MG 2ML VIAL IV PRN
[2022-09-17 14:10] VITALS: BP 124/72
[2022-09-17] MEDS ORDERED: HOME MED LIST COMPLETE! XX SCH (14:10)
== END 2022-09-17 15:00 | disposition home or self-care (01) ==
LOC: M LDO 13:45
PROVIDERS: ATTEND Obstetrics & Gynecology
DX: O36.8130 Decreased fetal movements, third trimester, not applicable or unspecified (principal); Z3A.35 35 weeks gestation of pregnancy
CPT/HCPCS: 59025; G0463

== ENCOUNTER 2022-09-29 13:52 | Outpatient (CLI) | payer OTHER ==
[~2022-09-29] VITALS: Ht 165.1 cm; Wt 94.4 kg
[2022-09-29] MEDS ORDERED: HOME MED LIST COMPLETE! XX SCH (14:10)
[2022-09-29 14:11] VITALS: BP 140/74
[2022-09-29 14:13] VITALS: BP 124/72
[2022-09-29 14:56] VITALS: BP 130/75
== END 2022-09-29 14:54 | disposition home or self-care (01) ==
LOC: M LDO 13:52
PROVIDERS: ATTEND Advanced Practice Midwife
DX: O47.03 False labor before 37 completed weeks of gestation, third trimester (principal); O34.219 Maternal care for unspecified type scar from previous cesarean delivery; Z3A.37 37 weeks gestation of pregnancy
CPT/HCPCS: 59025; 76815; G0463

== ENCOUNTER 2022-10-10 19:51 | Outpatient (CLI) | payer OTHER ==
[~2022-10-10] VITALS: Ht 165.1 cm; Wt 97.1 kg
[2022-10-10 20:13] VITALS: BP 116/66; O2SAT 98
[2022-10-10 20:23] VITALS: BP 116/66; O2SAT 98
[2022-10-10] MEDS ORDERED: HOME MED LIST COMPLETE! XX SCH (20:35)
== END 2022-10-10 21:50 | disposition home or self-care (01) ==
LOC: M LDO 19:51
PROVIDERS: ATTEND Obstetrics & Gynecology
DX: O26.893 Other specified pregnancy related conditions, third trimester (principal); R07.89 Other chest pain; O34.219 Maternal care for unspecified type scar from previous cesarean delivery; Z3A.39 39 weeks gestation of pregnancy
CPT/HCPCS: 59025; 76815; G0463

== ENCOUNTER 2022-10-13 06:54 | Inpatient (IN) | payer OTHER ==
[~2022-10-13] VITALS: Ht 165.1 cm; Wt 97.0 kg
[2022-10-13] VITALS (7 sets, daily range): BP systolic 121–142; BP diastolic 65–71; TEMP 98.9; O2SAT 98–100
[2022-10-13] MEDS ORDERED: BICITRA 30ML SOLN UDC PO ONE (07:00)
[2022-10-13] MEDS ORDERED: LACTATED RINGER'S 1000 ML IV STA (07:00)
[2022-10-13] MEDS ORDERED: LR 1,000 ML IV SCH (07:00)
[2022-10-13] MEDS ORDERED: ceFAZolin SOD 2 GM in IV 1 EA IV ONE (07:00)
[2022-10-13] MEDS ORDERED: HOME MED LIST COMPLETE! XX SCH (07:30)
[2022-10-13] MEDS: PRENATAL VITAMINS CHEWABLE TABLET PO SCH (09:00)
[2022-10-13 09:23] LABS: HEMOGLOBIN 11.6 g/dl (12.0-15.5); MEAN CORPUSCULAR HEMOGLOBIN 21.4 pg (27.0-33.0); MEAN CORPUSCULAR HGB CONC 31.4 g/dl (32.0-36.5); MEAN CORPUSCULAR VOLUME 68.3 fl (80.0-96.0); PLATELET COUNT, AUTOMATED 179 10^3/uL (150-450); RED BLOOD COUNT 5.42 10^6/uL (4.00-5.40); WHITE BLOOD COUNT 6.5 10^3/uL (4.0-10.0)
[2022-10-13] MEDS ORDERED: OXYTOCIN INJ 10UNITS/ML 1ML VIAL As Ordered ONE (09:53)
[2022-10-13] MEDS ORDERED: KETOROLAC 60MG 2ML VIAL As Ordered ONE (09:53)
[2022-10-13] MEDS ORDERED: MORPHINE PRES-FREE INJ 10 MG/10 ML VIAL As Ordered ONE (09:53)
[2022-10-13 11:21] LABS: CORD GAS ABE A -4.6; CORD GAS HCO3 A 22.4 MMOL/L; CORD GAS O2 SAT A 75.4 %; CORD GAS PCO2 A 48.6 mmHg; CORD GAS PH A 7.282 UNITS; CORD GAS PO2 A 34.4 mmHg; CORD GAS SBC A 20.2 MMOL/L; CORD GAS TCO2 A 23.9 MMOL/L
[2022-10-13 11:24] LABS: CORD GAS ABE V -1.5; CORD GAS HCO3 V 24.6 MMOL/L; CORD GAS O2 SAT V 80.8 %; CORD GAS PCO2 V 46.2 mmHg; CORD GAS PH V 7.344 UNITS; CORD GAS PO2 V 36.7 mmHg; CORD GAS SBC V 22.8 MMOL/L
[2022-10-13] MEDS ORDERED: OXYTOCIN DRIP 30 UNITS in IV 1 EA IV SCH (11:55)
[2022-10-13] MEDS ORDERED: ONDANSETRON 4MG 2ML VIAL IV PRN ×2 (11:55→12:00)
[2022-10-13] MEDS ORDERED: METOCLOPRAMIDE INJ 10MG/2ML VIAL IV PRN ×2 (11:55→12:00)
[2022-10-13] MEDS ORDERED: oxyCODONE 5MG TAB PO PRN ×3 (11:55→12:00)
[2022-10-13] MEDS ORDERED: SIMETHICONE 80MG CHEW TAB PO PRN (11:55)
[2022-10-13] MEDS ORDERED: RHOGAM 300MCG (1500IU) INJ IM SCH (11:55)
[2022-10-13] MEDS ORDERED: METHYLERGONOVINE MALEATE 0.2MG/ML 1ML VIAL IM PRN (11:55)
[2022-10-13] MEDS ORDERED: diphenhydrAMINE 50MG/ML VIAL IV PRN (12:00)
[2022-10-13] MEDS: SLF 3 ML SYR IV SCH (12:00)
[2022-10-13] MEDS ORDERED: MEPERIDINE 25 MG/ML 1ML VIAL IV PRN (12:00)
[2022-10-13] MEDS ORDERED: fentaNYL 100 MCG/2 ML INJECTION IV PRN (12:00)
[2022-10-13] MEDS: ACETAMINOPHEN 500 MG TAB PO SCH ×2 (12:00→18:53)
[2022-10-13] MEDS ORDERED: NALOXONE INJ 0.4MG/1ML VIAL IV PRN ×2 (12:00)
[2022-10-13] MEDS ORDERED: HYDROMORPHONE HCL 0.5 MG/ 0.5 ML SYRINGE IV PRN (12:00)
[2022-10-13] MEDS ORDERED: **NOTE PATIENT COMMENT** MISC XX SCH (12:00)
[2022-10-13] MEDS ORDERED: OXYTOCIN 30UNITS IN 0.9% NaCl 500ML IV BAG As Ordered ONE (12:41)
[2022-10-13] MEDS: LR 1,000 ML IV SCH (17:05)
[2022-10-13] MEDS: KETOROLAC 30 MG/ML 1ML VIAL IV SCH ×2 (18:14→22:58)
[2022-10-13] MEDS: DOCUSATE SODIUM 100MG CAPSULE PO SCH (20:46)
[2022-10-14] MEDS: ACETAMINOPHEN 500 MG TAB PO SCH ×4 (00:16→17:43)
[2022-10-14 02:00] VITALS: BP 126/66; O2SAT 99
[2022-10-14] MEDS: KETOROLAC 30 MG/ML 1ML VIAL IV SCH ×2 (05:40→07:32)
[2022-10-14 06:00] VITALS: BP 125/60; O2SAT 98
[2022-10-14 06:09] LABS: HEMATOCRIT 29.2 % (36.0-47.0); MEAN CORPUSCULAR HEMOGLOBIN 21.6 pg (27.0-33.0); MEAN CORPUSCULAR HGB CONC 31.5 g/dl (32.0-36.5); MEAN CORPUSCULAR VOLUME 68.5 fl (80.0-96.0); PLATELET COUNT, AUTOMATED 160 10^3/uL (150-450); RED BLOOD COUNT 4.26 10^6/uL (4.00-5.40); WHITE BLOOD COUNT 9.9 10^3/uL (4.0-10.0)
[2022-10-14 06:50] LABS: HEMOGLOBIN 9.2 g/dl (12.0-15.5)
[2022-10-14] MEDS: LR 1,000 ML IV SCH (07:31)
[2022-10-14] MEDS: SLF 3 ML SYR IV SCH (07:35)
[2022-10-14] MEDS: PRENATAL VITAMINS CHEWABLE TABLET PO SCH (07:39)
[2022-10-14] MEDS: DOCUSATE SODIUM 100MG CAPSULE PO SCH ×2 (07:39→20:03)
[2022-10-14] MEDS: IBUPROFEN 800 MG TAB PO SCH ×3 (07:39→23:01)
[2022-10-14] MEDS ORDERED: PILL CUTTER 1 EACH XX PRN (08:35)
[2022-10-14 10:00] VITALS: BP 115/63; O2SAT 98
[2022-10-14] MEDS ORDERED: IBUPROFEN 800 MG TAB PO SCH (13:00)
[2022-10-14 14:00] VITALS: BP 118/61; O2SAT 99
[2022-10-14 22:00] VITALS: BP 124/57; O2SAT 100
[2022-10-15] MEDS: ACETAMINOPHEN 500 MG TAB PO SCH ×2 (00:01→05:20)
[2022-10-15 02:00] VITALS: BP 129/58; O2SAT 100
[2022-10-15 05:45] VITALS: BP 139/82; O2SAT 98
[2022-10-15] MEDS ORDERED: MEASLES,MUMPS,RUBELLA VACCINE INJ (MMR-II) SC.IMMUN ONE (09:00)
[2022-10-15] MEDS: IBUPROFEN 800 MG TAB PO SCH (09:04)
[2022-10-15] MEDS: PRENATAL VITAMINS CHEWABLE TABLET PO SCH (09:50)
[2022-10-15] MEDS: DOCUSATE SODIUM 100MG CAPSULE PO SCH (09:50)
[2022-10-15 10:00] VITALS: BP 132/70; O2SAT 99
== END 2022-10-15 12:25 | disposition home or self-care (01) | DRG 773 ==
LOC: M LDI 06:54 → M OBS 13:32
PROVIDERS: ADMIT Obstetrics & Gynecology; ATTEND Obstetrics & Gynecology
PROC: 10D00Z1 Extraction of Products of Conception, Low, Open Approach (ICD-10-PCS; principal; 2022-10-14)
DX: O34.211 Maternal care for low transverse scar from previous cesarean delivery (principal); Z37.0 Single live birth; Z3A.39 39 weeks gestation of pregnancy

== ENCOUNTER 2023-01-30 11:13 | Emergency (ER) | payer OTHER ==
[~2023-01-30] VITALS: Ht 165.1 cm; Wt 84.5 kg
[2023-01-30 11:14] VITALS: TEMP 99.4
[2023-01-30 13:05] LABS: BASO % 0.6 % (0.0-1.0); EOS # 0.4 10^3/uL (0.0-0.5); HEMATOCRIT 39.3 % (36.0-47.0); HEMOGLOBIN 11.9 g/dl (12.0-15.5); LYMPH # 2.5 10^3/uL (1.5-5.0); LYMPH % 52.9 % (24.0-44.0); MEAN CORPUSCULAR HEMOGLOBIN 19.9 pg (27.0-33.0); MEAN CORPUSCULAR HGB CONC 30.3 g/dl (32.0-36.5); MEAN CORPUSCULAR VOLUME 65.8 fl (80.0-96.0); MONO # 0.4 10^3/uL (0.0-0.8); MONO % 7.4 % (2.0-8.0); NEUTROPHILS # 1.5 10^3/uL (1.5-8.5); NEUTROPHILS % 30.9 % (36.0-66.0); PLATELET COUNT, AUTOMATED 242 10^3/uL (150-450); RED BLOOD COUNT 5.97 10^6/uL (4.00-5.40); WHITE BLOOD COUNT 4.7 10^3/uL (4.0-10.0)
[2023-01-30 14:02] LABS: GC DNA AMPLIFICATION NEGATIVE (NEGATIVE)
[2023-01-30 14:34] VITALS: BP 118/65; O2SAT 98
== END 2023-01-30 14:34 | disposition home or self-care (01) ==
LOC: M ED 11:13
DX: N89.8 Other specified noninflammatory disorders of vagina (principal); Z97.5 Presence of (intrauterine) contraceptive device; Z79.810 Long term (current) use of selective estrogen receptor modulators (SERMs)